=== PATIENT | female | born 1995 | race Caucasian/White ===

== ENCOUNTER 2020-05-17 00:30 | Observation (INO) | payer OTHER ==
[~2020-05-17] VITALS: Ht 160 cm; Wt 81.6 kg
== END 2020-05-17 02:52 | disposition home or self-care (01) ==
LOC: SPU 00:30
PROVIDERS: ADMIT Obstetrics & Gynecology; ATTEND Obstetrics & Gynecology
DX: O34.73 Maternal care for abnormality of vulva and perineum, third trimester (principal); N90.89 Other specified noninflammatory disorders of vulva and perineum; Z3A.38 38 weeks gestation of pregnancy
CPT/HCPCS: 76815; 81002; G0378

== ENCOUNTER 2020-05-21 10:15 | Inpatient (IN) | payer OTHER ==
[~2020-05-21] VITALS: Ht 160 cm; Wt 81.6 kg
[2020-05-21] MEDS ORDERED: LR 1,000 ML IV ONE (11:00)
[2020-05-21] MEDS ORDERED: CEFAZOLIN 2 GM IVPB PREMIX 50 ML IV ONE (11:00)
[2020-05-21 11:26] LABS: BASOPHILS % (AUTO) 0.4 % (0.0-2.0); EOSINOPHILS # (AUTO) 0.2 K/uL (0.0-0.4); EOSINOPHILS % (AUTO) 1.8 % (0.0-4.0); HEMATOCRIT 35.5 % (36-48); HEMOGLOBIN 11.7 g/dL (12.0-16.0); LYMPHOCYTES # (AUTO) 1.5 K/uL (1.0-5.5); LYMPHOCYTES % (AUTO) 14.3 % (20.5-51.5); MEAN CORPUSCULAR HEMOGLOBIN 28 pg (27-31); MEAN CORPUSCULAR HGB CONC 33 % (32-36); MEAN CORPUSCULAR VOLUME 86 fL (79.0-98.0); MONOCYTES % (AUTO) 9.8 % (1.7-9.3); NEUTROPHILS # (AUTO) 7.9 K/uL (1.8-7.7); NEUTROPHILS % (AUTO) 73.7 % (40.0-70.0); PLATELET COUNT (AUTO) 192 K/uL (130-430); RED BLOOD CELL COUNT(AUTO) 4.12 MIL/uL (4.2-6.2); RED CELL DISTRIBUTION WIDTH 14.6 % (9.0-15.0); WHITE BLOOD COUNT (AUTO) 10.7 K/uL (4.8-10.8)
[2020-05-21 13:08] LABS: BILIRUBIN,URINE NEGATIVE (NEGATIVE); BLOOD, URINE NEGATIVE (NEGATIVE); CLARITY/URINE SL CLOUDY (CLEAR); COLOR,URINE YELLOW (YELLOW); GLUCOSE,URINE NEGATIVE (NEGATIVE); KETONES,URINE NEGATIVE (NEGATIVE); LEUKOCYTE ESTERASE ,URINE 3+ (NEGATIVE); NITRITE, URINE NEGATIVE (NEGATIVE); PH,URINE 6.5 (5.0-8.0); PROTEIN URINE NEGATIVE (NEGATIVE); UROBILINOGEN,URINE 0.2 (0.2-1.0)
[2020-05-21] MEDS ORDERED: OXYTOCIN 10 UNIT/ML VIAL IV ONE (13:16)
[2020-05-21] MEDS ORDERED: BUPIVACAINE /DEX PF 0.75% SPINAL 2 ML AMP INJ ONE (13:16)
[2020-05-21] MEDS ORDERED: DEXAMETHASONE SOD PHOSPHATE 4 MG/ML VIAL IVP ONE (13:16)
[2020-05-21] MEDS ORDERED: MORPHINE SULFATE 10 MG/ML VIAL IVP ONE (13:16)
[2020-05-21] MEDS ORDERED: fentaNYL CITRATE 250 MCG/5 ML AMP IV ONE (13:16)
[2020-05-21] MEDS ORDERED: NS IRRIG SOLN 1000 ML IR ONE (13:16)
[2020-05-21] MEDS ORDERED: LR 1,000 ML IV.SOLN IV ONE (13:16)
[2020-05-21 13:42] LABS: RBC,URINE NONE SEEN /HPF (0-3); TRICHOMONAS,URINE None Seen /HPF (None Seen); YEAST,URINE None Seen /HPF (None Seen)
[2020-05-21 13:44] LABS: BACTERIA,URINE None Seen /HPF (None Seen)
[2020-05-21] MEDS ORDERED: DOCUSATE SODIUM 100 MG CAPSULE PO PRN (13:45)
[2020-05-21] MEDS ORDERED: BISACODYL 10 MG/SUPPOSITORY RC PRN (13:45)
[2020-05-21] MEDS ORDERED: SENNOSIDES/DOCUSATE SODIUM 1 TAB TABLET(SENOKOT-S) PO PRN (13:45)
[2020-05-21] MEDS ORDERED: RHO(D) IMMUNE GLOBULIN/MALTOSE 1500 UNITS/1.3 ML (WINHRO) IM PRN (13:45)
[2020-05-21] MEDS ORDERED: SIMETHICONE 80 MG TAB.CHEW PO PRN (13:45)
[2020-05-21] MEDS ORDERED: DIPH-TET-PERTUS Vaccine 0.5 ML VIAL (ADACEL) I.M. PRN (13:45)
[2020-05-21] MEDS ORDERED: LR 1,000 ML IV SCH (13:45)
[2020-05-21] MEDS ORDERED: LANOLIN 7 GM OINT. TP PRN (13:45)
[2020-05-21] MEDS ORDERED: ANUSOL 1 EA SUPP.RECT (PREPARATION H) RC PRN (13:45)
[2020-05-21] MEDS ORDERED: MEASLES,MUMPS&RUBELLA VACC/PF 12500 UNIT/0.5 ML VIAL SUBQ PRN (13:45)
[2020-05-21] MEDS ORDERED: OXYTOCIN/0.9 % SODIUM CHLORIDE 1,000 ML IV ONE (13:45)
[2020-05-21] MEDS ORDERED: KETOROLAC TROMETHAMINE 60 MG/2 ML VIAL IM PRN (14:15)
[2020-05-21] MEDS ORDERED: ONDANSETRON HCL 4 MG/2 ML VIAL IVP PRN (14:15)
[2020-05-21] MEDS ORDERED: MORPHINE SULFATE 10 MG/ML VIAL IV PRN (14:15)
[2020-05-21] MEDS ORDERED: NALOXONE HCL 0.4 MG/ML AMP (NARCAN) IVP PRN (14:15)
[2020-05-21] MEDS ORDERED: IBUPROFEN 600 MG TABLET PO SCH (18:00)
[2020-05-21] MEDS: KETOROLAC TROMETHAMINE 30 MG VIAL IVP SCH (18:12)
[2020-05-21] MEDS: DIPHENHYDRAMINE INJ 50 MG/ML VIAL IM PRN (20:44)
[2020-05-21] MEDS ORDERED: TEMAZEPAM 15 MG CAPSULE PO PRN (21:00)
[2020-05-22] MEDS: DIPHENHYDRAMINE INJ 50 MG/ML VIAL IM PRN (04:50)
[2020-05-22] MEDS: KETOROLAC TROMETHAMINE 30 MG VIAL IVP SCH (06:20)
[2020-05-22 06:28] LABS: BASOPHILS % (AUTO) 0.2 % (0.0-2.0); EOSINOPHILS # (AUTO) 0.1 K/uL (0.0-0.4); EOSINOPHILS % (AUTO) 0.4 % (0.0-4.0); HEMATOCRIT 29.3 % (36-48); HEMOGLOBIN 9.8 g/dL (12.0-16.0); LYMPHOCYTES # (AUTO) 1.6 K/uL (1.0-5.5); LYMPHOCYTES % (AUTO) 11.3 % (20.5-51.5); MEAN CORPUSCULAR HEMOGLOBIN 29 pg (27-31); MEAN CORPUSCULAR HGB CONC 34 % (32-36); MEAN CORPUSCULAR VOLUME 85 fL (79.0-98.0); MONOCYTES # (AUTO) 1.3 K/uL (0.0-1.0); MONOCYTES % (AUTO) 9.1 % (1.7-9.3); NEUTROPHILS # (AUTO) 10.9 K/uL (1.8-7.7); PLATELET COUNT (AUTO) 169 K/uL (130-430); RED BLOOD CELL COUNT(AUTO) 3.45 MIL/uL (4.2-6.2); RED CELL DISTRIBUTION WIDTH 14.1 % (9.0-15.0); WHITE BLOOD COUNT (AUTO) 13.8 K/uL (4.8-10.8)
[2020-05-22 07:19] VITALS: BP_SYST 108
[2020-05-22] MEDS: IBUPROFEN 600 MG TABLET PO SCH ×2 (11:18→18:27)
[2020-05-22] MEDS ORDERED: OXYCODONE/ACETAMINOPHEN 5-325 TABLET PO PRN ×2 (16:15)
[2020-05-22] MEDS: HYDROcodone/ACETAMIN 5-325 MG TAB (NORCO/ VICODIN) PO PRN (21:04)
[2020-05-23] MEDS: HYDROcodone/ACETAMIN 5-325 MG TAB (NORCO/ VICODIN) PO PRN ×2 (00:26→06:45)
[2020-05-23] MEDS: IBUPROFEN 600 MG TABLET PO SCH ×3 (00:27→12:21)
[2020-05-23] MEDS ORDERED: FLU VACC QS2020-21 (6 mos & up) 0.5 ML/SYRINGE I.M. PRN (13:15)
[2020-05-24 19:08] LABS: FTA-Ab (T PALLIDUM) Non Reactive (Non Reactive)
== END 2020-05-23 14:14 | disposition home or self-care (01) | DRG 788 ==
LOC: SPU 10:15
PROVIDERS: ADMIT Obstetrics & Gynecology; ATTEND Obstetrics & Gynecology
PROC: 10D00Z1 Extraction of Products of Conception, Low, Open Approach (ICD-10-PCS; principal; 2020-05-21 13:16)
DX: O98.52 Other viral diseases complicating childbirth (principal); Z20.828 Contact with and (suspected) exposure to other viral communicable diseases; Z3A.39 39 weeks gestation of pregnancy; Z37.0 Single live birth
CPT/HCPCS: 36415; 81000-TC; 85025; 86592; 86780; 86886; 86900; 86901; 87086; 94760; J0690; J1100; J1200; J1885; J2270; J2590; J3010; J3490; J7120